=== PATIENT | male | born 1950 | race Caucasian/White ===

== ENCOUNTER 2025-04-25 14:14 | Outpatient (CLI) | payer MEDICARE, MEDICAID ==
[~2025-04-25] VITALS: Ht 182.9 cm; Wt 79.4 kg
[2025-04-25 14:43] LABS: TOTAL HEMOGLOBIN 14.6 G/dl (13.5-17.5)
[2025-04-25 15:19] VITALS: PULSE 63; RESP 16; O2SAT 98
[2025-04-25] MEDS: albuterol 2.5 MG/3 ML nebule NEB ONE (15:19)
[2025-04-25 15:31] VITALS: PULSE 60; RESP 16
--- NOTE | 2025-04-25 18:30 | RADIOLOGY REPORT ---
CHEST RADIOGRAPH Indication: COPD Technique: DI CHEST,TWO VIEWS Comparison: None FINDINGS: Left chest dual lead cardiac pacing device. Aortic atherosclerotic disease. The cardiac silhouette is unremarkable. The lungs demonstrate no pulmonary airspace consolidation. The pulmonary vasculature is unremarkable. There is no pleural effusion. There is no pneumothorax. Moderate thoracic degenerative disc disease IMPRESSION: No pulmonary airspace consolidation.
--- NOTE | 2025-04-26 15:20 | PROCEDURE NOTE - Respiratory ---
Procedure Note-Respiratory Providers to CC Copies To 1: REYNALDO PEÑA MD Procedure Name: This is a complete pulmonary function study dated April 25, 2025. Spirometry measurements: The forced vital capacity is in the normal range at 3.68 L. The FEV1 is severely reduced at only 1.4 L. The FEV1 ratio is subst antially reduced. All of the measured flow rates show significant reduction. After inhaled bronchodilator there is significant improvement in the FEV1 and the flow rate measurements. Spirometry documents severe obstructive ventilatory defect which is slightly reversible with inhaled bronchodilator. Lung volume measurements: The total lung capacity is mildly elevated. The re sidual volume and functional residual capacity measurements are also elevated. This documents some degree of hyperinflation with air trapping within the lungs. These findings are commonly seen in advanced obstructive lung disease. Lung diffusion measurement: The DLCO remains in the normal range. It is noted that the KVO measurement is normal as well as the alveolar volume measurement. It is noted that the hemoglobin measurement is normal at 14.6. Airway resistance measurement: The airway resistance is significantly elevated. This again suggests significant obstructive lung disease. It is noted that on the fingerstick blood draw this patient shows 4.8% of the hemoglobin is occupied by carbon monoxide. It is likely that this patient has smoked cigarettes within several hours of having the blood draw. Overall conclusion: This study shows severe abnormality. There is evidence for severe obstructive ventilatory defect with only partial reversal with inhaled bronchodilator. 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 The patient shows mild hyperinflation with air trapping within the lungs. The lung diffusion capacity remains in the normal range. It is strongly recommended that the patient abstain from cigarette smoking. Bronchodilator therapy should be continued for this patient. We have no previous studies for comparison. JOE BERRY MD Apr 26, 2025 15:20
== END 2025-04-25 23:59 | disposition home or self-care (01) ==
LOC: RT 14:14
PROVIDERS: ATTEND Internal Medicine Critical Care Medicine
DX: J44.9 Chronic obstructive pulmonary disease, unspecified (principal)
CPT/HCPCS: 71046; 85018; 94060; 94727; 94729; 94760